=== PATIENT | female | born 1985 | race Caucasian/White ===

== ENCOUNTER 2019-08-13 01:57 | Day surgery (SDC) | payer OTHER ==
[~2019-08-13] VITALS: Ht 165.1 cm; Wt 74.8 kg
[2019-08-13] MEDS ORDERED: KEFL500C17 PO (03:02)
[2019-08-13] MEDS ORDERED: CYCL10TA PO (03:02)
[2019-08-13] MEDS ORDERED: NS 1,000 ML IV ONE (06:45)
[2019-08-13] MEDS ORDERED: cefTRIAXone SOD 1 GM in D5W MINI-BAG PLUS 50 ML IV ONE (06:45)
[2019-08-13 07:07] LABS: BASO % 0.2 % (0.0-1.0); EOS # 0.1 10^3/uL (0.0-0.5); EOS % 0.6 % (0.0-3.0); HEMATOCRIT 35.6 % (36.0-47.0); HEMOGLOBIN 11.8 g/dl (12.0-15.5); LYMPH # 1.5 10^3/uL (1.5-5.0); LYMPH % 10.8 % (24.0-44.0); MEAN CORPUSCULAR HEMOGLOBIN 29.6 pg (27.0-33.0); MEAN CORPUSCULAR HGB CONC 33.1 g/dl (32.0-36.5); MEAN CORPUSCULAR VOLUME 89.2 fl (80.0-96.0); MONO % 7.3 % (0.0-5.0); NEUTROPHILS % 80.5 % (36.0-66.0); PLATELET COUNT, AUTOMATED 290 10^3/uL (150-450); RED BLOOD COUNT 3.99 10^6/uL (4.00-5.40); WHITE BLOOD COUNT 13.6 10^3/uL (4.0-10.0)
[2019-08-13] MEDS ORDERED: ISOVUE-370 76% 100ML VIAL (Q9967) As Ordered ONE (07:21)
--- NOTE | 2019-08-13 08:06 | REPVR ---
PROCEDURE INFORMATION: Exam: CT Abdomen And Pelvis With Contrast Exam date and time: 08/13/2019 7:20 AM Age: 34 years old Clinical indication: Other: Abscess; Additional info: Bartholian abscess, ? rectal involvement TECHNIQUE: Imaging protocol: Computed tomography of the abdomen and pelvis with intravenous contrast. Radiation optimization: All CT scans at this facility use at least one of these dose optimization techniques: automated exposure control; mA and/or kV adjustment per patient size (includes targeted exams where dose is matched to clinical indication); or iterative reconstruction. Contrast material: ISOVUE 370; Contrast volume: 100 ml; Contrast route: IV; COMPARISON: No relevant prior studies available. FINDINGS: Lungs: There is mild bibasilar atelectatic lung changes. Liver: Normal. No mass. Gallbladder and bile ducts: Normal. No calcified stones. No ductal dilation. Pancreas: Normal. No ductal dilation. Spleen: Normal. No splenomegaly. Adrenals: Normal. No mass. Kidneys and ureters: Normal. No hydronephrosis. Stomach and bowel: Unremarkable. No obstruction. No mucosal thickening. Appendix: No evidence of appendicitis. Intraperitoneal space: There is fullness in the peroneal/vulvar region with fluid collection measuring 6.5 x 3.9 x 5.0 cm (transverse by AP by craniocaudad the) spanning the the right and left vulvar region is with enhancing rim and surrounding stranding. Vasculature: Unremarkable. No abdominal aortic aneurysm. Lymph nodes: Prominent bilateral inguinal lymph nodes seen the largest on the left measures 2.6 centimetres in the largest on the right measures 1.8 centimetres. Shotty bilateral pelvic sidewalls and retroperitoneal lymph nodes, subcentimeter seen. Bladder: Unremarkable as visualized. Reproductive: The endometrial stripe is thickened measuring up to 1.9 centimetres. Vaginal tampon is seen. There is a 1.4 x 1.0 cm left ovarian cyst with thin enhancing rim. Bones/joints: Unremarkable. No acute fracture. Soft tissues: Unremarkable. IMPRESSION: 1. Complex lobulated rim enhancing fluid collection measuring 6.5 x 3.9 x 5.0 cm in the perineal/vulvar region spanning right and left suggestive of an abscess such as superinfected Bartholin's gland cyst among other etiologies. Correlation with clinical history and physical exam is needed. 2. Vaginal tampon. 3. Prominent endometrial stripe at 1.9 centimetres. Findings could be secondary to blood products or could be within physiologic range in the secretory phase. Other underlying abnormalities cannot be excluded. Correlate with patient's clinical and menstrual history. If indicated pelvic sonogram may be obtained for further evaluation. 4. 1.4 x 1.0 cm left ovarian hemorrhagic cyst versus corpus luteal cyst. 5. Bilateral enlarged inguinal lymph nodes in addition to bilateral hemipelvis and retroperitoneal shotty subcentimeter lymph nodes likely reactive to the vulvar/perineal process. Electronically signed by: Tommy Quinteros On 08/13/2019 08:06:00 AM
[2019-08-13] MEDS ORDERED: LR 1,000 ML IV SCH ×2 (10:47→13:15)
[2019-08-13] MEDS ORDERED: NORCO, ANEXSIA 5/325MG TABLET (HYDROcodone/ACETAMINOPHEN) PO PRN (11:00)
[2019-08-13] MEDS ORDERED: MORPHINE 2 MG/ML 1ML VIAL (J2270) IV PRN (11:00)
[2019-08-13] MEDS ORDERED: metroNIDAZOLE 500 MG in IV 1 EA IV ONE (11:00)
[2019-08-13] MEDS ORDERED: ACETAMINOPHEN TAB 650MG DOSE (2X325MG) PO PRN (11:00)
[2019-08-13] MEDS ORDERED: metroNIDAZOLE/NACL 500MG(5MG/ML)100 ML BAG (S0030) As Ordered ONE (11:09)
[2019-08-13] MEDS ORDERED: fentaNYL 100 MCG/2 ML INJECTION (J3010) As Ordered ONE (11:31)
[2019-08-13] MEDS ORDERED: MIDAZOLAM INJ 2 MG/2 ML VIAL (J2250) As Ordered ONE (11:31)
[2019-08-13] MEDS ORDERED: propofoL 200 MG/20 ML VIAL As Ordered ONE (11:31)
[2019-08-13] MEDS ORDERED: LIDOCAINE 2% INJ 100 MG/5 ML SDV (FOR ANES.) As Ordered ONE (11:31)
[2019-08-13] MEDS ORDERED: CHLOROPROCAINE PRES. FREE 3% INJ 20 ML VIAL (J2400) As Ordered ONE (11:42)
[2019-08-13] MEDS ORDERED: KETOROLAC 60 MG/2 ML VIAL (J1885) As Ordered ONE (12:03)
[2019-08-13] MEDS ORDERED: dexameTHASONE 4 MG/ML 1ML VIAL (J1100) As Ordered ONE (12:03)
[2019-08-13] MEDS ORDERED: ACETAMINOPHEN 1000MG 100ML IV BTL (OFIRMEV) (J0131 PER 10MG) As Ordered ONE (12:03)
[2019-08-13] MEDS ORDERED: ONDANSETRON 4MG/2ML VIAL (J2405) As Ordered ONE (12:03)
[2019-08-13] MEDS ORDERED: fentaNYL 100 MCG/2 ML INJECTION (J3010) IV PRN (13:15)
[2019-08-13] MEDS ORDERED: ONDANSETRON 4MG/2ML VIAL (J2405) IV PRN (13:15)
[2019-08-13 13:30] VITALS: BP 101/61
[2019-08-13 14:00] VITALS: BP 111/59
[2019-08-13 14:30] VITALS: BP 98/58
[2019-08-13 16:00] VITALS: BP 112/64
[2019-08-13] MEDS ORDERED: HYDR-3715 PO (19:40)
[2019-08-13] MEDS ORDERED: AMOX875T2 PO (19:40)
[2019-08-13 19:43] VITALS: BP 94/57
[2019-08-13] MEDS ORDERED: AUGMENTIN 875 MG TAB PO SCH (21:00)
[2019-08-13] MEDS ORDERED: DOCUSATE SODIUM 100 MG CAP PO SCH (21:00)
--- NOTE | 2019-08-15 05:27 | HPE ---
DATE OF ADMISSION: 08/13/2019 HISTORY OF PRESENT ILLNESS: This patient was seen at the request of the emergency room physician. 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 She came into emergency this morning unable to sit for the last 48 hours, was very uncomfortable rocking from one side to the other, She has been experiencing this pain now progressively worse with increasing pressure in her lower pelvic area. PAST MEDICAL HISTORY: Her past history is that she has had a section primary for what apparently was a large for gestational age (LGA) baby at 40 weeks, 6 pounds 0 ounces after induction of labor. She also had right toe surgery. She has no medical issues, last period was August 13, 2019 and she is doing nothing for control. She works in [place] at [employer] ([employer]). On evaluation she appears in distress because of her pelvic pain. Vital signs reveal temperature is 97.8, pulse 125, blood pressure 138/78, respirations are 18, 99 sats on room air. Admitting blood work reveals hemoglobin 11.8, hematocrit 35.6 and white count was 13.6. On chemistry her quant was negative. PHYSICAL EXAMINATION: On physical examination she is rocking back and forth in bed after placing her in the lithotomy position. We evaluated her lower pelvic area and she has a large fluctuant mass in the ischial perineal area on the left side. it is hot, it is tender, fluctuant. On examination of the vaginal area it seems to be protruding, pushing the vagina in medially. She also has a significant protrusion on the right side as well and she has a tender subcutaneous area in the lower ischial rectal area. When pushing on it you can also observe pus coming out of her rectum, indicating that she has probably a perirectal abscess. Her vulva appears to be swollen secondary to this inflammatory process, clitoris is the normal area, labia appeared to be normal. This does not indicate that she has a Bartholin's abscess. A CT of her abdomen and pelvis indicated her abdomen, liver, gallbladder, pancreas, spleen, adrenals, kidney, stomach and appendix were all within normal limits. In the gopi anal vulvar area there is a fluid collection about 6.5 x 5.0 x 3.9 in transverse diameter spanning to the right side and the left vulvar regions with enhancing rim and surrounding vascular area. There is predominantly bilateral inguinal lymph nodes which on digital examination are very tender; the largest areas are 2.6 on the left and 1.8 on the right. There are significant bilateral pelvic sidewall and retroperitoneal lymph nodes noted. The uterus was normal, endometrial thickness was normal. She does have a tampon in because of her period. She has a functional cyst in the left ovary 1.4 x 1 cm. SUMMARY: In summary, she has an enhancing fluid collection 6.5 x 3.9 x 5.0 in the perineal and vulvar regions spanning to the right side. Our impression is that this lady will require an incision and drainage (I and D) her perivulvar abscess and we will consult surgery to this end. We discussed the results of imaging and blood work with the patient. We await consultation note from Dr. Julio. Total duration time with this patient is one hour.
--- NOTE | 2019-08-15 09:47 | IPN ---
DATE: 08/13/2019 HISTORY: The patient underwent an incision and drainage of a large ischiorectal abscess earlier on 08/13/2019. She has generally done well during the day. She is taking a regular diet and denies any nausea or vomiting. She currently denies any significant pain. Vital signs show that she has been afebrile with a pulse in the 70s. Intake and output shows that she has been taking a diet well and she has voided. She has taken no pain medications. On physical exam, the patient is alert, sitting up in the bed eating. IMPRESSION: Patient is much more comfortable following drainage of her abscess. PLAN: We discussed her discharge home. I will provide her with written prescriptions for [place] and Augmentin that she can fill at [facility] tomorrow. She will have one dose of Augmentin before she leaves the hospital tonight. I advised her that she can take Tylenol or Advil or other [id number] pain medicines as needed and this may well be adequate for her. She is to remove the gauze won from her wounds in the morning while either soaking in a tub or standing in the shower, and she should expect some bleeding and additional drainage. She should continue with four times daily warm soaks or showers or compresses. She should followup in the office in about a week. She was provided a note to be off duty for the next week as well.
--- NOTE | 2019-08-15 10:12 | RO ---
DATE OF PROCEDURE: 08/13/2019 PREOPERATIVE DIAGNOSIS: Perirectal abscess. POSTOPERATIVE DIAGNOSIS: Ischiorectal abscess. PROCEDURE PERFORMED: Incision and drainage of ischiorectal abscess. SURGEON: Herrera Julio MD ANESTHESIA: Spinal. INDICATIONS FOR THE PROCEDURE: The patient is a 34-year-old woman who noted the onset of some perineal pain on , 08/10/2019. This increased in intensity over the ensuing several days. She was seen in an urgent care center on 08/12/2019 and given a shot of antibiotics. The pain became unbearable, and she presented to the emergency department on the morning of 08/13/2019. (dictation cut off) was done which showed an abscess in the perineum. I was consulted, and she clearly has physical evidence and CT evidence of a large ischiorectal abscess. She is now for incision and drainage. OPERATIVE PROCEDURE: The patient was brought to the operating room. She received some sedation, and a spinal anesthetic was then placed. She was moved into a lithotomy position. The perineum was prepped and draped. Examination revealed a small amount of blood coming from the vaginal introitus consistent with her menses. There was some purulent matter draining from the rectal opening. A digital rectal examination revealed marked thickening and some fullness, particularly in a left anterior position. With 12 o'clock at the anterior midline of the anus. This extended from 12 o'clock to approximately 3 o'clock. There was also some fullness on the right-hand side anteriorly extending to perhaps 10:30. An approximately 2 cm radial incision was made at about the 1 o'clock to 1:30 position. This was made just outside the anal sphincters. This was deepened into the subcutaneous tissues, and hemostasis was ensured with the cautery. Then a clamp was inserted and spread, and a large amount of thick greenish bloody dark pus was released. Cultures were obtained for aerobic and anaerobic culture. The opening was spread, and digital examination revealed that the underlying abscess cavity extended posteriorly just about to the 5 o'clock position. The cavity also extended anteriorly into the posterior aspect of the left labia. It also extended across the anterior midline between the rectum and vagina to another pocket on the right anteriorly. A second radial incision about 1.5 centimeter in size was made on the right at about the 11 o'clock position, and the abscess pocket was entered and the tract gently dilated by finger dissection. The abscess did not appear to extend posteriorly along the right side of the rectum. After the abscess cavity was completely evacuated, hemostasis (dictation cut off), and the wounds were wicked with saline-moistened gauze. A bulky bandage was applied. The patient tolerated the procedure well without apparent complication. She was transferred to the stretcher and moved to the recovery room in stable condition.
== END 2019-08-13 20:15 | disposition home or self-care (01) ==
LOC: M ED 01:57 → M SDC 10:47 → M PED 13:25 → M SDC 20:15
PROVIDERS: ATTEND Surgery
DX: K61.39 Other ischiorectal abscess (principal); F17.218 Nicotine dependence, cigarettes, with other nicotine-induced disorders
CPT/HCPCS: 46040; 74177; 80047; 84702; 85025; 87040; 87070; 87075; 87076; 87077; 87186; 96361; 96365; 99284; J0131; J0696; J1100; J1885; J2250; J2400; J2405; J3010; Q9967

== ENCOUNTER 2020-05-16 10:16 | Outpatient (CLI) | payer OTHER ==
[2020-05-16] VITALS (21 sets, daily range): BP systolic 133–203; BP diastolic 61–113
[~2020-05-16] VITALS: Ht 165.1 cm; Wt 91.6 kg
[~2020-05-16 10:16] MED LIST: AMOX875T2 PO; CYCL-707 PO; HYDR-3715 PO; KEFL500C17 PO
[2020-05-16] MEDS ORDERED: PRENTAB9 PO (10:35)
[2020-05-16] MEDS ORDERED: TUMS500C PO (10:36)
[2020-05-16] MEDS ORDERED: hydrALAZINE 20MG/ML 1ML VIAL (J0360 PER 20MG) IV STA ×2 (10:53→12:15)
[2020-05-16] MEDS ORDERED: MAG Sulf (L&D) 4 GM/100 ML 4 GM in IV 1 EA IV ONE (11:00)
[2020-05-16] MEDS ORDERED: CALCIUM GLUCONATE 1,000 MG in D5W MINI-BAG PLUS 100 ML IV PRN (11:00)
[2020-05-16] MEDS ORDERED: LR 1,000 ML IV SCH (11:00)
--- NOTE | 2020-05-16 11:28 | HPEPDOC ---
Obstetrical History & Physical General Date of Admission History of Present Illness 34yo at 33+2 presents from the clinic for mild range BPs. She does not have any headache, visual changes, abd pain, f/c, VB, LOF, decreased FM, or contractions. She does endorse generalized edema. She reports a headache but >24h ago. Antepartum Course Pre- weight (lbs.): 160 Admission Weight (lbs.): 202 Change in Weight (lbs.): 42 Past Medical History Past Obstetrical History : Past Obstetrical History: Multigravida (G1 scheduled CD for suspected CPD 6#2. 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 Past Medical History Medical History denied Surgical History: section, Other (right foot surgery, perianal abscess I+D) Family History Significant Family History: No pertinent family hx Social History Marital Status: Family situation: Spouse/partner home Psychosocial History: No pertinent psych hx * Smoker: non-smoker Alcohol: Denies Drugs: denies Imunizations Tdap status: current Influenza Status: needs Allergies Coded Allergies: No Known Allergies (Unverified , 08/13/19) Medications Scheduled No.137/Iron/Folic Acd ( Vitamin Tablet) 1 Each Tablet, 1 TAB PO DAILY Scheduled PRN Calcium Carbonate (Tums) 200 Mg Tab.chew, 500 MG PO Q6HP PRN for INDIGESTION Physical Examination Physical Examination GENERAL: Alert and oriented times three. BREAST: . ABDOMEN: Gravid and non-tender to touch. FETUS: Is vertex (VTX) by TAUS HEART RATE: Regular rate and rhythm. LUNGS: Clear to auscultation (CTA). EXTREMITIES: No edema. No clonus. Deep tendon reflexes (DTRs) + [3]. Vital Signs/I&O Vital Signs Date Time Temp Pulse Resp B/P (MAP) Pulse Ox O2 Delivery O2 Flow Rate FiO2 05/16/20 11:06 180/110 05/16/20 10:32 98.5 59 16 97 Room Air Laboratory Data Urine Culture: No Growth Pertinent Laboratoy Data Blood Type: O+ RBC Antibody Screen: Negative HIV: Negative Hepatitis B: Negative Rapid Plasma Reagin: Nonreactive Rubella: Immune Varicella: Immune Chlamydia/Gonorrhea: Negative Quad Screen Test: Negative Cystic Fibrosis: Negative Glucose Tolerance Test: 118 Anatomy Ultrasound Placenta Location: Posterior Normal Anatomy: Yes Placenta Previa: No Estimated Weight (grams): 3600 Steroid Therapy Steroid Therapy: Yes (starting today) Vaginal Examination Presentation: Cephalic presentation (by US MVP 3.5cm) Assessment Heart Rate (FHR): 130 Variability: Moderate Accelerations: Positive Decelerations: None Tocometer Contractions: No Multi-drug resistant Organism: No history of MDRO Assessment/Plan Assessment 34yo at 33+2 MAIKOL [id number] by 10wk US presents to L+D for mild range BP in clinic but had persistent severe range BP on arrival requiring 5mg x1 and 10mg IV hydralazine x2, and 20mg IV labetalol x1, Mg was started with 4g bolus and continued at 2g/h for seizure prophylaxis. Pre-eclampsia labs were ordered. No abnormal findings on physical exam, otherwise VS normal, CAT I tracing. CBC/CMP/LDH/Uric Acid WNL. APC 1. history of - desires RCD with bilateral salpingectomy 2. excessive weight gain 42# 3. AMA - normal quad and anatomy scan 4. pre-eclampsia with severe features 5. GBS unknown - collected Rh pos, GBS unknown, ceph by US. EFW 3600, placenta posterior Plan - magnesium 4g bolus and 2g/h, routine Mg checks and seizure precautions - IV antihypertensives for sustained severe range BPs - pre-eclampsia labs pending - BMTZ started for lung maturity - GBS collected for GBS unknown - if stabilizes BP plan for delivery at 34wk, if not will proceed with RCD/BS as indicated - will schedule pre-e labs if initial return abnormal - pending labs: P:C, GBS PRISCILLA Castillo DO May 16, 2020 11:28
[2020-05-16] MEDS ORDERED: MAG Sulf (OBGYN) 20GM/500ML 20,000 MG in IV 1 EA IV SCH (11:30)
[2020-05-16] MEDS ORDERED: hydrALAZINE 20MG/ML 1ML VIAL (J0360 PER 20MG) IV ONE (11:45)
[2020-05-16] MEDS ORDERED: BETAMETHASONE SOLUSPAN 6MG/ML 5ML VIAL (J0702 PER 3MG) IM SCH (12:00)
[2020-05-16 12:03] LABS: ALT/SGPT 17 U/L (12-78); BILIRUBIN,TOTAL 0.3 MG/DL (0.2-1.0); CREATININE FOR GFR 0.55 MG/DL (0.55-1.30); GLOMERULAR FILTRATION RATE > 60.0 (>60); LDH LACTATE DEHYDROGENASE 167 U/L (84-246); URIC ACID 5.1 MG/DL (2.6-6.0)
[2020-05-16] MEDS ORDERED: LABETALOL 100MG/20ML VIAL As Ordered ONE (12:42)
[2020-05-16 12:56] LABS: HEMATOCRIT 34.8 % (36.0-47.0); HEMOGLOBIN 11.5 g/dl (12.0-15.5); MEAN CORPUSCULAR HEMOGLOBIN 29.7 pg (27.0-33.0); MEAN CORPUSCULAR VOLUME 89.9 fl (80.0-96.0); PLATELET COUNT, AUTOMATED 287 10^3/uL (150-450); RED BLOOD COUNT 3.87 10^6/uL (4.00-5.40)
[2020-05-16] MEDS ORDERED: LABETALOL 100MG/20ML VIAL IV STA (13:04)
[2020-05-16 14:06] LABS: APPEARANCE, URINE CLEAR (CLEAR); BACTERIA, URINE AUTO 1+ (NEGATIVE); BILIRUBIN, URINE AUTO NEGATIVE (NEGATIVE); BLOOD, URINE BLOOD NEGATIVE (NEGATIVE); COLOR, URINE STRAW (YELLOW); GLUCOSE, URINE (UA) AUTO NEGATIVE (NEGATIVE); KETONE, URINE AUTO TRACE mg/dL (NEGATIVE); LEUKOCYTE ESTERASE, URINE AUTO NEGATIVE (NEGATIVE); MUCUS, URINE SMALL (NEGATIVE); NITRITE, URINE AUTO NEGATIVE (NEGATIVE); PROTEIN, URINE AUTO NEGATIVE (NEGATIVE); RBC, URINE AUTO 0 /HPF (0-3); SPECIFIC GRAVITY URINE AUTO 1.006 (1.002-1.035); SQUAMOUS EPITHELIAL CELL UR AU 2 /HPF (0-6); UROBILINOGEN, URINE AUTO 0.2 mg/dL (0.0-2.0); WBC, URINE AUTO 0 /HPF (0-3)
[2020-05-16 14:15] LABS: CREATININE,RANDOM URINE 21.3 MG/DL
--- NOTE | 2020-05-16 14:49 | IPNPDOC ---
Obstetrical Progress Note Date of Service May 16, 2020 Subjective Transfer update. Objective Vital Signs Date Time Temp Pulse Resp B/P (MAP) Pulse Ox O2 Delivery O2 Flow Rate FiO2 05/16/20 13:27 99 20 171/95 (120) 05/16/20 10:32 98.5 97 Room Air Assessment Heart Rate Tracing: Category I Tocometer Contractions: No Assessment and Plan Additional Comments At the time of transfer the patient had mild range BP, CAT I FHR tracing, and otherwise normal vital signs. She denied si/sx of pre-eclampsia or magnesium toxicity and had no si/sx of this on exam. A L+D nurse was sent with the patient with IV antihypertensives to utilize if severe range for which they were instructed to call me if indicated. Magnesium at 2g/h was continued at time of transfer with LR to keep fluids at 125cc/h. Continuous monitoring was requested for the transport. Sign out was given direct to physican Dr. Shin at [facility] in [place]. PRISCILLA ARMANDO DO May 16, 2020 14:49
== END 2020-05-16 14:40 | disposition short-term general hospital (02) ==
LOC: M LDO 10:16
PROVIDERS: ATTEND Obstetrics & Gynecology
DX: O14.13 Severe pre-eclampsia, third trimester (principal); Z3A.33 33 weeks gestation of pregnancy; Z98.891 History of uterine scar from previous surgery
CPT/HCPCS: 36415; 59025; 76815; 81001; 82247; 82565; 82570; 83615; 84156; 84450; 84460; 84550; 85027; 87081; 96365; 96372; 96375; 96376; G0378; G0463; J0360; J0702; J3475